=== PATIENT | female | born 1960 | race Caucasian/White ===

== ENCOUNTER 2018-12-10 23:13 | Emergency (ER) | payer MEDICARE, MEDICAID ==
[~2018-12-10] VITALS: Ht 162.6 cm; Wt 95.0 kg
[2018-12-10 23:19] VITALS: BP 114/69
[2018-12-11] MEDS ORDERED: FLUO40CA10 PO (00:08)
[2018-12-11] MEDS ORDERED: CLON-527 PO (00:08)
== END 2018-12-11 00:24 | disposition home or self-care (01) ==
LOC: ER 23:14
DX: F31.9 Bipolar disorder, unspecified (principal); F41.9 Anxiety disorder, unspecified; Z88.2 Allergy status to sulfonamides
CPT/HCPCS: 99283

== ENCOUNTER 2019-08-12 23:48 | Emergency (ER) | payer MEDICARE, MEDICAID ==
[~2019-08-12] VITALS: Ht 162.6 cm; Wt 86.4 kg
[~2019-08-12 23:48] MED LIST: CLON-527 PO; FLUO40CA10 PO
[2019-08-13] MEDS ORDERED: amox tr/potassium clavulanate 875/125mg TAB PO ONE (02:25)
[2019-08-13] MEDS ORDERED: TETanus/Pertussis (Acell)/Diphther VAC/PF (Tdap-Adult) 0.5ml syringe IM ONE (02:25)
[2019-08-13] MEDS ORDERED: AMOX-580 PO (02:27)
[2019-08-13] MEDS ORDERED: ketorolac trometh inj. 60 MG/2 ML VIAL IM ONE (02:30)
[2019-08-13] MEDS ORDERED: acetaminophen 325mg tablet PO ONE (02:30)
[2019-08-13 03:07] VITALS: BP 152/82
== END 2019-08-13 03:08 | disposition home or self-care (01) ==
LOC: ER 23:48
DX: S61.451A Open bite of right hand, initial encounter (principal); S51.852A Open bite of left forearm, initial encounter; Z88.2 Allergy status to sulfonamides; Z79.2 Long term (current) use of antibiotics; Z79.899 Other long term (current) drug therapy; W55.01XA Bitten by cat, initial encounter; Y93.89 Activity, other specified; Y92.89 Other specified places as the place of occurrence of the external cause; Y99.8 Other external cause status
CPT/HCPCS: 90471; 90715; 96372; 99283; J1885